=== PATIENT | female | born 1950 | race American Indian/Alaskan Native ===

== ENCOUNTER 2017-03-17 08:14 | Day surgery (SDC) | payer OTHER ==
[2016-09-30 09:54] VITALS: BMI 31.4
[2017-03-17] MEDS ORDERED: Lidocaine Hydrochloride 5 ML INJ ONE (10:49)
[2017-03-17] MEDS ORDERED: Propofol 10 mg/ml Inj (20 ML) ONE ×3 (10:49→11:25)
[2017-03-17 11:23] VITALS: O2SAT 100
[2017-03-17 11:55] VITALS: TEMP 97.9
[2017-03-17 12:54] VITALS: PULSE 67
[2017-03-17 12:57] VITALS: BP 147/77; RESP 14
== END 2017-03-17 12:40 | disposition home or self-care (01) ==
LOC: C.ENDO 08:14
PROVIDERS: ATTEND Internal Medicine Gastroenterology
DX: Z12.11 Encounter for screening for malignant neoplasm of colon (principal); R13.10 Dysphagia, unspecified; K64.8 Other hemorrhoids; K29.70 Gastritis, unspecified, without bleeding; I10 Essential (primary) hypertension; E78.5 Hyperlipidemia, unspecified; E11.9 Type 2 diabetes mellitus without complications; Z79.84 Long term (current) use of oral hypoglycemic drugs; Z79.82 Long term (current) use of aspirin; Z79.899 Other long term (current) drug therapy; K21.9 Gastro-esophageal reflux disease without esophagitis
CPT/HCPCS: 43239; 45378; 82948; 88305; 88312; 88342; J2704

== ENCOUNTER 2018-02-02 13:32 | Emergency (ER) | payer OTHER ==
[2018-02-02 13:32] VITALS: BMI 28.6
[2018-02-02 13:38] VITALS: BP 150/85; PULSE 58; RESP 18; TEMP 98.4; O2SAT 99
--- NOTE | 2018-02-02 14:25 | C.PDOC ---
History Of Present Illness 67 y/o female presents to the ER complaining of left shoulder pain which has been present for the past 3 months.Patient states that she fell towards a table and she braced herself, she has pain since the incident. Patient reports that the pain is worse at night and she has difficulty sleeping. She took Gabapentin and Tylenol without relief. 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 Time Seen by Provider: 02/02/18 13:58 Chief Complaint (Nursing): Upper Extremity Problem/Injury History Per: Patient History/Exam Limitations: no limitations Onset/Duration Of Symptoms: Days Current Symptoms Are (Timing): Still Present Severity: Moderate Past Medical History Reviewed: Historical Data, Nursing Documentation, Vital Signs Vital Signs: Last Vital Signs Temp 98.4 F 02/02/18 13:34 Pulse 58 L 02/02/18 13:34 Resp 18 02/02/18 13:34 BP 150/85 02/02/18 13:34 Pulse Ox 99 02/02/18 13:34 - Medical History PMH: Colonic Polyps (COLONOSCOPY 1994; NOT SURE IF HAD POLYPS), Gastritis, HTN, Hypercholesterolemia, Hypothyroidism Denies: Chronic Kidney Disease Surgical History: Endoscopy Family History: States: No Known Family Hx - Social History Hx Tobacco Use: No Hx Alcohol Use: No Hx Substance Use: No - Immunization History Hx Tetanus Toxoid Vaccination: No Hx Influenza Vaccination: No Hx Pneumococcal Vaccination: No Review Of Systems Constitutional: Negative for: Fever, Chills, Weakness Eyes: Positive for: Other ((-) scleral icterus). Negative for: Redness ENT: Negative for: Mouth Swelling Cardiovascular: Negative for: Chest Pain Respiratory: Negative for: Cough, Shortness of Breath Gastrointestinal: Negative for: Nausea, Vomiting, Diarrhea Genitourinary: Negative for: Dysuria, Hematuria Musculoskeletal: Negative for: Back Pain Skin: Negative for: Rash Neurological: Negative for: Weakness, Numbness, Dizziness Physical Exam - Physical Exam Appears: Non-toxic, No Acute Distress Skin: Normal Color, Warm, Dry Head: Atraumatic, Normacephalic Eye(s): bilateral: Normal Inspection Nose: Normal Oral Mucosa: Moist Neck: Supple Chest: Symmetrical Cardiovascular: Rhythm Regular Respiratory: Normal Breath Sounds, No Rales, No Rhonchi, No Wheezing Extremity: Normal ROM (pain with active ROM of left arm raising above 90 degrees, no pain with passive ROM ), Tenderness (mild tenderness to palpation over left shoulder), Capillary Refill (< 2 seconds), No Swelling Pulses: Left Brachial: Normal Neurological/Psych: Oriented x3, Normal Speech, Normal Motor (normal rn hematology strength), Normal Sensation ED Course And Treatment O2 Sat by Pulse Oximetry: 99 (RA) Pulse Ox Interpretation: Normal Disposition Counseled Patient/Family Regarding: Diagnosis, Need For Followup, Rx Given - Disposition Referrals: [facility] [Outside] Disposition: HOME/ ROUTINE Disposition Time: 14:24 Condition: STABLE Additional Instructions: OFE HOUSER, thank you for letting us take care of you today. Your provider was Christi Edge MD and you were treated for SHOULDER PAIN. The emergency medical care you received today was directed at your acute symptoms. If you were prescribed any medication, please fill it and take as directed. It may take several days for your symptoms to resolve. Return to the Emergency Department if your symptoms worsen, do not improve, or if you have any other problems. Please contact your doctor or call one of the physicians/clinics you have been referred to that are listed on the Patient Visit Information form that is included in your discharge packet. Bring any paperwork you were given at discharge with you along with any medications you are taking to your follow up visit. Our treatment cannot replace ongoing medical care by a primary care provider outside of the emergency department. Thank you for allowing the [facility] team to be part of your care today. Prescriptions: Cyclobenzaprine [Flexeril] 10 mg PO HS PRN #15 tab PRN Reason: Pain, Moderate (4-7) Forms: [employer] (Senegalese), General Discharge Instructions - Clinical Impression Clinical Impression: Neuropathic pain of left shoulder - PA / LEGAL DOCUMENT ASSISTANT / Resident Statement MD/DO has reviewed & agrees with the documentation as recorded. - Scribe Statement The provider has reviewed the documentation as recorded by the Kailyn Leong Provider Attestation All medical record entries made by the Scribe were at my direction and personally dictated by me. I have reviewed the chart and agree that the record accurately reflects my personal performance of the history, physical exam, medical decision making, and the department course for this patient. I have also personally directed, reviewed, and agree with the discharge instructions and disposition.
== END 2018-02-02 14:44 | disposition home or self-care (01) ==
LOC: C.ER 13:32
DX: M25.512 Pain in left shoulder (principal); G62.9 Polyneuropathy, unspecified; E78.00 Pure hypercholesterolemia, unspecified; E03.9 Hypothyroidism, unspecified